=== PATIENT | male | born 1980 | race African-American/Black ===

== ENCOUNTER 2016-12-04 17:54 | Emergency (ER) | payer SELFPAY ==
[2016-12-04] MEDS ORDERED: ONDANSETRON 4 MG TAB.RAPDIS PO ONE (19:29)
[2016-12-04] MEDS ORDERED: OXYCODONE-ACETAMINOPHEN 5-325 MG TABLET PO ONE (19:29)
--- NOTE | 2016-12-04 19:58 | ER Document Report ---
HPI - HPI Patient complains to provider of: thumb laceration Onset: Just prior to arrival Onset/Duration: Sudden Quality of pain: Achy Severity: Severe Pain Level: 5 Context: Patient presents to the emergency department with complaints of left thumb tip laceration. He was cutting greens and reports he cut the tip of the thumb off. Patient reports tetanus is up-to-date. Patient is right-hand dominant Associated Symptoms: None Exacerbated by: Denies Relieved by: Denies Similar symptoms previously: No Recently seen / treated by doctor: No - CARDIOVASCULAR Cardiovascular: DENIES: Chest pain - DERM Skin Color: Normal Past Medical History - General Information source: Patient - Social History Smoking Status: Never Smoker Chew tobacco use (# tins/day): No Frequency of alcohol use: None Drug Abuse: None Occupation: cook at [employer] Lives with: Family Family History: CVA, Malignancy. denies: CAD Pulmonary Medical History: Reports: Hx Asthma, Hx Bronchitis Renal/ Medical History: Denies: Hx Peritoneal Dialysis Surgical Hx: Negative - Immunizations Immunizations up to date: Yes Hx Diphtheria, Pertussis, Tetanus Vaccination: Yes Vertical Provider Document - CONSTITUTIONAL Agree With Documented VS: Yes Exam Limitations: No Limitations General Appearance: WD/WN, Mild Distress - winces when thumb palpated - INFECTION CONTROL TRAVEL OUTSIDE OF THE [place] IN LAST 30 DAYS: No - HEENT HEENT: Atraumatic, Normocephalic - NECK Neck: Supple - RESPIRATORY Respiratory: No Respiratory Distress O2 Sat by Pulse Oximetry: 100 - CARDIOVASCULAR Cardiovascular: Regular Rate - MUSCULOSKELETAL/EXTREMETIES Musculoskeletal/Extremeties: MAEW, FROM, Tender - left thumb dorsal with avulsion laceration of distal dorsal thumb tip and thumbnail bleeding - NEURO Level of Consciousness: Awake, Alert, Appropriate Motor/Sensory: No Motor Deficit - DERM Integumentary: Warm, Dry Adult Front & Back Diagram: 1 - left thumb tip avulsion laceration Course - Re-evaluation Re-evalutation: 12/04/16 20:41 area cleaned well, quick clot placed, bleeding controlled - Vital Signs Vital signs: Temp Pulse Resp BP Pulse Ox 98.0 F 65 18 139/73 H 100 05/23/17 18:14 12/04/16 18:14 12/04/16 18:14 12/04/16 18:14 12/04/16 18:14 Discharge - Discharge Clinical Impression: nail laceration, thumb, left thumb tip skin avulsion, Elevated blood pressure reading Condition: Stable Disposition: HOME, SELF-CARE Instructions: Oral Narcotic Medication ([facility]), Avulsion Injury ([facility]) Additional Instructions: *You have been treated for finger tip skin avulsion and nail injury, elevated blood pressure reading *Take medication as prescribed for pain *Monitor the site for signs of infection such as increasing pain, redness, swelling, warmth *Keep the thumb clean as discussed, wear splint to protect the thumb *Follow up with a primary care provider within one week for recheck *Return to ED for signs of infection, worsening condition,changes, needs Monitor your blood pressure. Your blood pressure was elevated today. This may be because you were anxious, in pain or because you need medication. It is important to follow up with your primary care provider for full evaluation. Prescriptions: Oxycodone HCl/Acetaminophen [Percocet 5-325 mg Tablet] 1 - 2 tab PO ASDIR PRN # 15 tablet PRN Reason: Forms: Elevated Blood Pressure, Return to Work
[2016-12-04 20:41] VITALS: BP 124/63
== END 2016-12-04 20:42 | disposition home or self-care (01) ==
LOC: ER 17:54
DX: S61.112A Laceration without foreign body of left thumb with damage to nail, initial encounter (principal); W45.8XXA Other foreign body or object entering through skin, initial encounter; Y93.G1 Activity, food preparation and clean up; Y92.511 Restaurant or cafe as the place of occurrence of the external cause; Y99.0 Civilian activity done for income or pay; R03.0 Elevated blood-pressure reading, without diagnosis of hypertension; J45.909 Unspecified asthma, uncomplicated
CPT/HCPCS: 99282; S0119

== ENCOUNTER 2016-12-04 23:26 | Emergency (ER) | payer SELFPAY ==
[2016-12-04] MEDS ORDERED: TRANEXAMIC ACID INJ/PF 1,000 MG/10 ML SDV IV ONE (23:29)
--- NOTE | 2016-12-05 00:06 | ER Document Report ---
ED Wound - General Chief Complaint: Thumb bleeding Stated Complaint: THUMB PAIN Time Seen by Provider: 12/05/16 00:00 Notes: The patient is a 36-year-old male who presents with bleeding from his left thumb avulsion. He was cutting green in the kitchen when he cut off part of the distal thumb. He was seen in the emergency room 2 hours ago and the bleeding stopped with quick clot. The bleeding returned again. TRAVEL OUTSIDE OF THE [place] IN LAST 30 DAYS: No - Related Data Allergies/Adverse Reactions: iodine [Iodine] Allergy (Verified 12/08/15 07:43) Shellfish * [Shellfish] Allergy (Verified 12/08/15 07:43) Past Medical History - General Information source: Patient - Social History Smoking Status: Unknown if Ever Smoked Family History: CVA, Malignancy. denies: CAD Pulmonary Medical History: Reports: Hx Asthma, Hx Bronchitis Renal/ Medical History: Denies: Hx Peritoneal Dialysis - Immunizations Immunizations up to date: Yes Hx Diphtheria, Pertussis, Tetanus Vaccination: Yes Review of Systems - Review of Systems Notes: REVIEW OF SYSTEMS: CONSTITUTIONAL: -fevers, -chills EENT: -eye pain, -difficulty swallowing, -nasal congestion CARDIOVASCULAR:-chest pain, -syncope. RESPIRATORY: -cough, -SOB GASTROINTESTINAL: -abdominal pain, - nausea, -vomiting, -diarrhea GENITOURINARY: -dysuria, -hematuria MUSCULOSKELETAL: -back pain, -neck pain SKIN: +bleeding from distal left thumb, -rash or skin lesions. HEMATOLOGIC: -easy bruising or bleeding. LYMPHATIC: -swollen, enlarged glands. NEUROLOGICAL: -altered mental status or loss of consciousness, -headache, - neurologic symptoms PSYCHIATRIC: -anxiety, -depression. ALL OTHER SYSTEMS REVIEWED AND NEGATIVE. Physical Exam - Notes Notes: PHYSICAL EXAMINATION: GENERAL: Well-appearing, well-nourished and in no acute distress. HEAD: Atraumatic, normocephalic. EYES: Pupils equal round and reactive to light, extraocular movements intact, sclera anicteric, conjunctiva are normal. ENT: nares patent, oropharynx clear without exudates. Moist mucous membranes. NECK: Normal range of motion, supple without lymphadenopathy LUNGS: Breath sounds clear to auscultation bilaterally and equal. No wheezes rales or rhonchi. HEART: Regular rate and rhythm without murmurs ABDOMEN: Soft, nontender, normoactive bowel sounds. No guarding, no rebound. No masses appreciated. EXTREMITIES: Normal range of motion, no pitting or edema. No cyanosis. NEUROLOGICAL: Cranial nerves grossly intact. Normal speech, normal gait. Normal sensory and motor exams. PSYCH: Normal mood, normal affect. SKIN: Distal left thumb skin avulsion with active bleeding Course - Re-evaluation Re-evalutation: Bleeding stopped with Dermabond and Steristrips after applying finger tourniquet. Given return precautions and he understands. Procedures - Laceration/Wound Repair Left Thumb Time completed: 00:08 Wound length (cm): 3 Wound's Depth, Shape: Irregular Laceration pre-procedure: Shur-Clens applied Wound Repaired With: Steri-strips, Dermabond Layer Closure?: No Post-procedure wound care: Sterile dressing applied Post-procedure NV exam normal: Yes Complications: No Discharge - Discharge Clinical Impression: Avulsion of skin of left thumb Qualifiers: Encounter type: initial encounter Qualified Code(s): S61.002A - Unspecified open wound of left thumb without damage to nail, initial encounter Condition: Stable Disposition: HOME, SELF-CARE Additional Instructions: Keep the wound clean.
[2016-12-05 00:22] VITALS: BP 104/86
== END 2016-12-05 00:10 | disposition home or self-care (01) ==
LOC: ER 23:26
DX: S61.002A Unspecified open wound of left thumb without damage to nail, initial encounter (principal); W45.8XXA Other foreign body or object entering through skin, initial encounter; Y93.G1 Activity, food preparation and clean up; Z91.013 Allergy to seafood; J45.909 Unspecified asthma, uncomplicated
CPT/HCPCS: 99282